=== PATIENT | female | born 1995 | race Caucasian/White ===

== ENCOUNTER 2016-10-28 11:14 | Emergency (ER) | payer OTHER ==
[~2016-10-28] VITALS: Ht 162.6 cm; Wt 53.1 kg
[~2016-10-28 11:14] MED LIST: AZITHROMYCIN250 MG PO; BACTRIM DS1 TAB PO; BENADRYL 50MG C50 MG PO; CIMETIDINE400 M1 PO; CLARITIN10 MG OR; MULT VITAMI1 OR; NO HOME MEDS; NO MEDS; PREDNISONE10 MG PO; PROVENTIL HFA IN; TYLENOL & COD12.5 ML OR; ULTRAM50 M1 PO; VARIVAX SC; ZPAK PO
[2016-10-28] MEDS ORDERED: TRAMADOL HYDROC50 MG PO (14:21)
[2016-10-28] MEDS ORDERED: NAPROXEN DR500 MG PO (14:21)
[2016-10-28 14:27] VITALS: BP 134/79
== END 2016-10-28 14:32 | disposition home or self-care (01) | DRG 605 ==
LOC: ED 11:14
DX: S90.31XA Contusion of right foot, initial encounter (principal); M25.471 Effusion, right ankle; S90.01XA Contusion of right ankle, initial encounter; S93.401A Sprain of unspecified ligament of right ankle, initial encounter; S93.601A Unspecified sprain of right foot, initial encounter; V09.09XA Pedestrian injured in nontraffic accident involving other motor vehicles, initial encounter; Y93.89 Activity, other specified; Y92.007 Garden or yard of unspecified non-institutional (private) residence as the place of occurrence of the external cause

== ENCOUNTER 2016-12-10 13:04 | Emergency (ER) | payer OTHER ==
[~2016-12-10] VITALS: Ht 162.6 cm; Wt 120.0 kg
[~2016-12-10 13:04] MED LIST changes: +NAPROXEN DR500 MG PO; +TRAMADOL HYDROC50 MG PO
[2016-12-10] MEDS ORDERED: PREDNISONE10 MG PO (15:32)
[2016-12-10] MEDS ORDERED: IBUPROFEN600 MG PO (15:32)
[2016-12-10 15:50] VITALS: BP 141/95
== END 2016-12-10 15:55 | disposition home or self-care (01) | DRG 552 ==
LOC: ED 13:04
DX: S16.1XXA Strain of muscle, fascia and tendon at neck level, initial encounter (principal); G89.29 Other chronic pain; M54.9 Dorsalgia, unspecified; W22.01XA Walked into wall, initial encounter; Y93.89 Activity, other specified; Y92.89 Other specified places as the place of occurrence of the external cause

== ENCOUNTER 2016-12-26 21:44 | Emergency (ER) | payer OTHER ==
[~2016-12-26] VITALS: Ht 152.4 cm; Wt 55.0 kg
[~2016-12-26 21:44] MED LIST changes: +IBUPROFEN600 MG PO
[2016-12-27] MEDS ORDERED: NAPROSYN500 MG PO (00:11)
[2016-12-27 00:20] VITALS: BP 127/76
== END 2016-12-27 00:20 | disposition home or self-care (01) | DRG 605 ==
LOC: ED 21:44
DX: S40.012A Contusion of left shoulder, initial encounter (principal); S00.93XA Contusion of unspecified part of head, initial encounter; S50.12XA Contusion of left forearm, initial encounter; S80.02XA Contusion of left knee, initial encounter; S20.229A Contusion of unspecified back wall of thorax, initial encounter; W01.198A Fall on same level from slipping, tripping and stumbling with subsequent striking against other object, initial encounter; Y93.89 Activity, other specified; Y92.89 Other specified places as the place of occurrence of the external cause

== ENCOUNTER 2017-07-08 15:24 | Emergency (ER) | payer OTHER ==
[~2017-07-08] VITALS: Ht 152.4 cm; Wt 55.0 kg
[~2017-07-08 15:24] MED LIST changes: +NAPROSYN500 MG PO
[2017-07-08 15:56] LABS: URINE BILIRUBIN - DIPSTICK NEGATIVE (NEGATIVE); URINE BLOOD DIPSTICK SMALL (NEGATIVE); URINE COLOR YELLOW; URINE GLUCOSE - DIPSTICK NEGATIVE (NEGATIVE); URINE KETONE NEGATIVE (NEGATIVE); URINE NITRITE - DIPSTICK NEGATIVE (Negative); URINE PROTEIN - DIPSTICK TRACE mg/dL (NEG-TRACE); URINE SPECIFIC GRAVITY 1.015; URINE UROBILINOGEN - DIPSTICK 0.2 E.U./dL (0.2)
[2017-07-08 15:59] LABS: URINE CLARITY SL CLOUDY; URINE LEUK ESTERASE SMALL (NEGATIVE)
[2017-07-08 16:11] LABS: URINE BACTERIA RARE hpf; URINE SQUAMOUS EPITHELIAL CELL FEW EPI/hpf (0-FEW); URINE WBC 20-50 WBC/hpf (0-5)
[2017-07-08] MEDS ORDERED: KEFLEX500 MG PO (16:13)
[2017-07-08] MEDS ORDERED: MOTRIN800 MG PO (16:13)
[2017-07-08] MEDS ORDERED: PYRIDIUM200 MG PO (16:14)
[2017-07-08 16:30] VITALS: BP 130/94
== END 2017-07-08 16:30 | disposition home or self-care (01) | DRG 690 ==
LOC: ED 15:24
PROVIDERS: Emergency Medicine
DX: N10 Acute pyelonephritis (principal); B96.20 Unspecified Escherichia coli [E. coli] as the cause of diseases classified elsewhere; G89.29 Other chronic pain; M54.9 Dorsalgia, unspecified

== ENCOUNTER 2017-09-02 23:05 | Emergency (ER) | payer OTHER ==
[~2017-09-02] VITALS: Ht 152.4 cm; Wt 55.0 kg
[~2017-09-02 23:05] MED LIST changes: +KEFLEX500 MG PO; +MOTRIN800 MG PO; +PYRIDIUM200 MG PO
[2017-09-02] MEDS ORDERED: NIKKI PO (23:21)
[2017-09-02] MEDS ORDERED: GENTAMICIN15 ML/BTL OU (23:33)
[2017-09-02] MEDS ORDERED: (None)3.5 GM OU (23:33)
[2017-09-02 23:34] VITALS: BP 138/89
== END 2017-09-02 23:34 | disposition home or self-care (01) | DRG 125 ==
LOC: ED 23:05
DX: H10.9 Unspecified conjunctivitis (principal); H57.13 Ocular pain, bilateral; R50.9 Fever, unspecified

== ENCOUNTER 2018-02-13 09:13 | Emergency (ER) | payer OTHER ==
[~2018-02-13] VITALS: Ht 152.4 cm; Wt 57.0 kg
[~2018-02-13 09:13] MED LIST changes: +(None)3.5 GM OU; +GENTAMICIN15 ML/BTL OU; +NIKKI PO
[2018-02-13 10:19] LABS: IMMATURE GRANULOCYTES 0.2 % (0.0-5.0); MEAN CORPUSCULAR HGB 29.1 pG CALC (26.0-32.0); MEAN CORPUSCULAR HGB CONC 33.4 g/L CALC (32.0-36.0); NEUT# 3.61 thou/uL (2.00-7.15); RED BLOOD COUNT 4.4 mill/uL (4.20-5.60)
[2018-02-13 10:21] LABS: HEMATOCRIT 38.3 % (37.0-47.0); HEMOGLOBIN 12.8 g/dl (12.0-16.0); URINE BILIRUBIN - DIPSTICK NEGATIVE (NEGATIVE); URINE BLOOD DIPSTICK TRACE-INTACT (NEGATIVE); URINE COLOR YELLOW; URINE GLUCOSE - DIPSTICK NEGATIVE (NEGATIVE); URINE KETONE NEGATIVE (NEGATIVE); URINE LEUK ESTERASE NEGATIVE (NEGATIVE); URINE NITRITE - DIPSTICK NEGATIVE (Negative); URINE PROTEIN - DIPSTICK NEGATIVE (NEG-TRACE); URINE UROBILINOGEN - DIPSTICK 0.2 E.U./dL (0.2)
[2018-02-13 10:22] LABS: URINE CLARITY SL CLOUDY
[2018-02-13 10:31] LABS: BARBITURATES NEGATIVE (NEGATIVE); COCAINE NEGATIVE (NEGATIVE); METHADONE NEGATIVE (NEGATIVE); OXCYCODONE NEGATIVE (NEGATIVE); TETRAHYDROCANNABIONOL NEGATIVE (NEGATIVE); TRICYLIC ANTIDEPRESSANTS NEGATIVE (NEGATIVE)
[2018-02-13 10:43] LABS: ALBUMIN 4.2 g/dL (3.2-5.0); ALKALINE PHOSPHATASE 71 u/l (38-126); ANION GAP 13 (6-22 (CALC)); BILIRUBIN, TOTAL 0.5 mg/dL (0.0-1.4); BUN 14 mg/dL (7-17); BUN/CREATININE RATIO 18 (12-20 (CALC)); CARBON DIOXIDE 25 mmol/l (22-30); CHLORIDE 106 mmol/l (95-108); CREATININE 0.8 mg/dL (0.5-1.0); GFR > 60 ML/MIN (>=60 (CALC)); GFR FOR AFR.AMER. > 60 ML/MIN (>=60 (CALC)); POTASSIUM 3.9 mmol/l (3.5-5.1); SGOT/AST 16 u/l (14-36); SGPT/ALT 24 u/l (9-52); SODIUM 140 mmol/l (137-146); TOTAL PROTEIN 6.8 g/dL (6.3-8.2)
[2018-02-13] MEDS ORDERED: MEDDOSEPAK PO (11:26)
[2018-02-13] MEDS ORDERED: ZOFRAN ODT4 MG PO (11:26)
[2018-02-13] MEDS ORDERED: ANTIVERT PO (11:26)
[2018-02-13 12:07] VITALS: BP 124/65
== END 2018-02-13 12:01 | disposition home or self-care (01) | DRG 149 ==
LOC: ED 09:13
PROVIDERS: Emergency Medicine
DX: R42 Dizziness and giddiness (principal)

== ENCOUNTER 2020-02-22 14:14 | Emergency (ER) | payer BC ==
[~2020-02-22] VITALS: Ht 152.4 cm; Wt 60.0 kg
[~2020-02-22 14:14] MED LIST changes: +ANTIVERT PO; +MEDDOSEPAK PO; +ZOFRAN ODT4 MG PO
[2020-02-22] MEDS ORDERED: AIMOVIG140 MG/ML IM (14:36)
[2020-02-22 15:02] LABS: URINE BILIRUBIN - DIPSTICK NEGATIVE (NEGATIVE); URINE BLOOD DIPSTICK NEGATIVE (NEGATIVE); URINE COLOR ORANGE; URINE GLUCOSE - DIPSTICK 100 mg/dL (NEGATIVE); URINE KETONE NEGATIVE (NEGATIVE); URINE LEUK ESTERASE TRACE (NEGATIVE); URINE PROTEIN - DIPSTICK 30 mg/dL (NEG-TRACE)
[2020-02-22 15:06] LABS: URINE NITRITE - DIPSTICK POSITIVE (Negative)
[2020-02-22 15:18] LABS: URINE SQUAMOUS EPITHELIAL CELL FEW EPI/hpf (0-FEW)
[2020-02-22] MEDS ORDERED: MACROBID100 MG PO (16:17)
[2020-02-22 16:50] VITALS: BP 118/72
== END 2020-02-22 16:50 | disposition home or self-care (01) | DRG 178 ==
LOC: ED 14:14
PROVIDERS: Student in an Organized Health Care Education/Training Program
DX: U07.1 COVID-19 (principal); N39.0 Urinary tract infection, site not specified; B96.20 Unspecified Escherichia coli [E. coli] as the cause of diseases classified elsewhere

== ENCOUNTER 2020-08-08 18:32 | Emergency (ER) | payer BC ==
[~2020-08-08] VITALS: Ht 152.4 cm; Wt 65.0 kg
[~2020-08-08 18:32] MED LIST changes: +AIMOVIG140 MG/ML IM; +MACROBID100 MG PO
[2020-08-08 19:36] LABS: HEMATOCRIT 38.4 % (37.0-47.0); IMMATURE GRANULOCYTES 0.2 % (0.0-5.0); MEAN CELL VOLUME 86.5 fL CALC (80.0-100.0); MEAN CORPUSCULAR HGB 29.3 pG CALC (26.0-32.0); MEAN CORPUSCULAR HGB CONC 33.9 g/dL CAL (32.0-36.0); NEUT# 2.64 thou/uL (2.00-7.15); RED BLOOD COUNT 4.44 mill/uL (4.20-5.60); RED CELL DISTRI WIDTH 13.4 % (11.5-15.5)
[2020-08-08 19:51] LABS: ALBUMIN 4.4 g/dL (3.2-5.0); ALKALINE PHOSPHATASE 65 u/l (38-126); ANION GAP 14 (6-22 (CALC)); BILIRUBIN, TOTAL 0.7 mg/dL (0.0-1.4); BUN 16 mg/dL (7-17); BUN/CREATININE RATIO 18 (12-20 (CALC)); CARBON DIOXIDE 24 mmol/l (22-30); CHLORIDE 101 mmol/l (95-108); CREATININE 0.9 mg/dL (0.5-1.0); GFR > 60 ML/MIN (>=60 (CALC)); GFR FOR AFR.AMER. > 60 ML/MIN (>=60 (CALC)); SODIUM 135 mmol/l (137-146); TOTAL PROTEIN 7.3 g/dL (6.3-8.2)
[2020-08-08 19:56] LABS: SGOT/AST 33 u/l (14-36)
[2020-08-08 20:29] VITALS: BP 113/71
== END 2020-08-08 20:30 | disposition home or self-care (01) | DRG 313 ==
LOC: ED 18:32
PROVIDERS: Family Medicine
DX: R07.9 Chest pain, unspecified (principal)

== ENCOUNTER 2022-09-17 12:53 | Emergency (ER) | payer OTHER ==
[~2022-09-17] VITALS: Ht 152.4 cm; Wt 54.5 kg
[2022-09-17] VITALS (13 sets, daily range): BP systolic 92–145; BP diastolic 49–95
[2022-09-17 13:48] LABS: BASO% 0.5 % (0-3); EOS% 2.1 % (0-8); HEMATOCRIT 38.7 % (37.0-47.0); HEMOGLOBIN 12.9 g/dl (12.0-16.0); IMMATURE GRANULOCYTES 0.2 % (0.0-5.0); LYMPH% 25.3 % (15-41); MEAN CELL VOLUME 91.1 fL CALC (80.0-100.0); MEAN CORPUSCULAR HGB 30.4 pG CALC (26.0-32.0); MEAN CORPUSCULAR HGB CONC 33.3 g/dL CAL (32.0-36.0); MONO% 5.4 % (2-13); NEUT# 5.39 thou/uL (2.00-7.15); NEUT% 66.5 % (42-76); RED BLOOD COUNT 4.25 mill/uL (4.20-5.60)
[2022-09-17 14:57] LABS: ALBUMIN 4.7 g/dL (3.2-5.0); ALKALINE PHOSPHATASE 56 u/l (38-126); ANION GAP 10 (6-22 (CALC)); BILIRUBIN, TOTAL 0.2 mg/dL (0.02-1.3); BUN 16 mg/dL (7-17); BUN/CREATININE RATIO 23 (12-20 (CALC)); CARBON DIOXIDE 24 mmol/l (22-30); CHLORIDE 107 mmol/l (95-108); CREATININE 0.7 mg/dL (0.5-1.0); GFR FOR AFR.AMER. > 60 ML/MIN (>=60 (CALC)); GFR OTHER RACES > 60 ML/MIN (>=60 (CALC)); POTASSIUM 3.6 mmol/l (3.5-5.1); SGOT/AST 29 u/l (14-36); SODIUM 138 mmol/l (137-146); TOTAL PROTEIN 7.5 g/dL (6.3-8.2)
[2022-09-17] MEDS ORDERED: ZOFRAN4 MG/TAB PO (17:26)
== END 2022-09-17 17:43 | disposition home or self-care (01) | DRG 392 ==
LOC: ED 12:53
PROVIDERS: Family Medicine
DX: R11.2 Nausea with vomiting, unspecified (principal)

== ENCOUNTER 2022-11-01 06:11 | Emergency (ER) | payer OTHER ==
[~2022-11-01] VITALS: Ht 152.4 cm; Wt 53.0 kg
[~2022-11-01 06:11] MED LIST changes: +ZOFRAN4 MG/TAB PO
[2022-11-01 06:20] VITALS: BP 131/81
[2022-11-01 06:30] VITALS: BP 114/81
[2022-11-01 06:45] VITALS: BP 125/81
[2022-11-01 06:48] LABS: URINE BILIRUBIN - DIPSTICK NEGATIVE (NEGATIVE); URINE BLOOD DIPSTICK LARGE (NEGATIVE); URINE COLOR YELLOW; URINE GLUCOSE - DIPSTICK NEGATIVE (NEGATIVE); URINE PROTEIN - DIPSTICK >=300 mg/dL (NEG-TRACE); URINE SPECIFIC GRAVITY 1.025
[2022-11-01 06:58] LABS: URINE KETONE NEGATIVE (NEGATIVE); URINE LEUK ESTERASE MODERATE (NEGATIVE); URINE NITRITE - DIPSTICK POSITIVE (Negative)
[2022-11-01 06:59] LABS: URINE EPITHELIAL CELLS MODERATE EPI/hpf (0-FEW); URINE RBC 25-50 RBC/hpf (0-5); URINE WBC >100 WBC/hpf (0-5)
[2022-11-01 07:00] VITALS: BP 113/73
[2022-11-01 07:00] LABS: URINE BACTERIA MODERATE hpf; URINE YEAST MODERATE hpf
[2022-11-01] MEDS ORDERED: BACTRIM DS1 TAB PO (07:09)
[2022-11-01 07:15] VITALS: BP 130/77
[2022-11-01] MEDS ORDERED: ZOFRAN4 MG/TAB PO (07:17)
== END 2022-11-01 07:17 | disposition home or self-care (01) | DRG 690 ==
LOC: ED 06:11
PROVIDERS: Emergency Medicine
DX: N39.0 Urinary tract infection, site not specified (principal); B96.89 Other specified bacterial agents as the cause of diseases classified elsewhere; M06.9 Rheumatoid arthritis, unspecified

== ENCOUNTER 2023-02-13 11:10 | Emergency (ER) | payer SELFPAY ==
[~2023-02-13] VITALS: Ht 152.4 cm; Wt 54.4 kg
[2023-02-13 11:19] VITALS: BP 140/95
[2023-02-13 11:31] LABS: BASO% 0.5 % (0-3); EOS% 1.5 % (0-8); HEMATOCRIT 42.8 % (37.0-47.0); HEMOGLOBIN 14.3 g/dl (12.0-16.0); IMMATURE GRANULOCYTES 0.2 % (0.0-5.0); MEAN CELL VOLUME 88.2 fL CALC (80.0-100.0); MEAN CORPUSCULAR HGB 29.5 pG CALC (26.0-32.0); MEAN CORPUSCULAR HGB CONC 33.4 g/dL CAL (32.0-36.0); MONO% 6.3 % (2-13); NEUT# 2.99 thou/uL (2.00-7.15); NEUT% 45.5 % (42-76); RED BLOOD COUNT 4.85 mill/uL (4.20-5.60); RED CELL DISTRI WIDTH 12.8 % (11.5-15.5)
[2023-02-13 11:35] VITALS: BP 127/96
[2023-02-13 11:43] LABS: ALKALINE PHOSPHATASE 75 u/l (38-126); ANION GAP 14 (6-22 (CALC)); BUN 17 mg/dL (7-17); BUN/CREATININE RATIO 20 (12-20 (CALC)); CARBON DIOXIDE 24 mmol/l (22-30); CHLORIDE 105 mmol/l (95-108); CREATININE 0.8 mg/dL (0.5-1.0); GFR FOR AFR.AMER. > 60 ML/MIN (>=60 (CALC)); GFR OTHER RACES > 60 ML/MIN (>=60 (CALC)); POTASSIUM 3.9 mmol/l (3.5-5.1); SGOT/AST 25 u/l (14-36); SODIUM 139 mmol/l (137-146); TOTAL PROTEIN 8.2 g/dL (6.3-8.2)
[2023-02-13 11:46] LABS: BILIRUBIN, TOTAL 0.8 mg/dL (0.02-1.3)
[2023-02-13 13:07] VITALS: BP 127/96
== END 2023-02-13 13:20 | disposition home or self-care (01) | DRG 103 ==
LOC: ED 11:10
PROVIDERS: Family Medicine
DX: G43.909 Migraine, unspecified, not intractable, without status migrainosus (principal); M06.9 Rheumatoid arthritis, unspecified

== ENCOUNTER 2023-07-16 08:25 | Emergency (ER) | payer OTHER ==
[~2023-07-16] VITALS: Ht 152.4 cm; Wt 59.0 kg
[2023-07-16] VITALS (10 sets, daily range): BP systolic 120–149; BP diastolic 77–101
[~2023-07-16 08:25] MED LIST changes: +CLARITIN10 M2 PO; +NAPROXEN500 MG PO; +PROBIOTIC1 TAB PO
[2023-07-16] MEDS ORDERED: ROBITUSSIN AC10 ML PO (10:26)
[2023-07-16] MEDS ORDERED: ZPAK PO (10:26)
== END 2023-07-16 10:53 | disposition home or self-care (01) | DRG 153 ==
LOC: ED 08:25
DX: J06.9 Acute upper respiratory infection, unspecified (principal); J32.9 Chronic sinusitis, unspecified; Z20.822 Contact with and (suspected) exposure to COVID-19

== ENCOUNTER 2023-08-23 15:18 | Emergency (ER) | payer OTHER ==
[~2023-08-23] VITALS: Ht 154.9 cm; Wt 57.0 kg
[2023-08-23] VITALS (8 sets, daily range): BP systolic 124–148; BP diastolic 85–92
[~2023-08-23 15:18] MED LIST changes: +ROBITUSSIN AC10 ML PO
[2023-08-23 16:51] LABS: URINE BILIRUBIN - DIPSTICK Negative (NEGATIVE); URINE BLOOD DIPSTICK Trace-intact (NEGATIVE); URINE GLUCOSE - DIPSTICK Negative (NEGATIVE); URINE KETONE Negative (NEGATIVE); URINE NITRITE - DIPSTICK Negative (Negative); URINE PH 8.5 (4.5-8.0); URINE PROTEIN - DIPSTICK Trace mg/dL (NEG-TRACE); URINE UROBILINOGEN - DIPSTICK 0.2 E.U./dL (0.2)
[2023-08-23 16:54] LABS: URINE COLOR Yellow; URINE LEUK ESTERASE Small (NEGATIVE)
[2023-08-23 16:56] LABS: URINE SQUAMOUS EPITHELIAL CELL FEW EPI/hpf (0-FEW); URINE WBC 50-100 WBC/hpf (0-5)
[2023-08-23 16:57] LABS: URINE BACTERIA FEW hpf
[2023-08-23] MEDS ORDERED: MACROBID100 M1 PO (19:24)
[2023-08-23] MEDS ORDERED: LEVOCETIRIZINE D5 MG PO (19:24)
[2023-08-23] MEDS ORDERED: ALLERGY RE50 MCG/ACT (19:24)
[2023-08-23] MEDS ORDERED: NAPROXEN500 MG PO (19:29)
== END 2023-08-23 20:19 | disposition home or self-care (01) | DRG 153 ==
LOC: ED 15:18
PROVIDERS: Nurse Practitioner
DX: J30.9 Allergic rhinitis, unspecified (principal); N39.0 Urinary tract infection, site not specified; B96.20 Unspecified Escherichia coli [E. coli] as the cause of diseases classified elsewhere; R07.81 Pleurodynia